=== PATIENT | male | born 1995 | race Caucasian/White ===

== ENCOUNTER 2023-03-17 21:25 | Emergency (ER) | payer OTHER, SELFPAY ==
[2023-03-17 21:32] VITALS: BP 141/95; PULSE 124; RESP 18; TEMP 37.1; O2SAT 98; BMI 35.3
[2023-03-17] MEDS: LORazepam 1 MG TABLET 2 MG PO (22:50)
[2023-03-17] MEDS: Lidocaine HCl 1 % MPF 5 ML VIAL SUBCUT (22:52)
--- NOTE | 2023-03-17 23:11 | ED_ITS ---
HPI - General Adult General Chief complaint: Wound/Laceration Stated complaint: lac left palm Time Seen by Provider: 03/17/23 22:41 Source: patient Mode of arrival: ambulatory Limitations: no limitations History of Present Illness HPI narrative: 27 yold male presents to the ED for left palm laceration near thumb cause by knife while he was cutting fishing line. Patient states she has complete range of motion of thumb and rest of fingers and has sensation. patient not uptodate with tetanus. patient denies any other trauma Related Data Previous Rx's Medication Instructions Recorded cephalexin 500 mg capsule 500 mg PO QID 7 days #28 caps 03/17/23 Allergies Allergy/AdvReac Type Severity Reaction Status Date / Time No Known Allergies Allergy Verified 03/17/23 21:41 Review of Systems Review of Systems: left palm laceration Yes all other systems are reviewed and are negative [facility] Social History Social History Advance Directives: No Advance Directives Information Provided: No Physical Exam ED Vital Signs: Vital Signs - 24 hr 03/17/23 21:32 Temperature 98.7 F Pulse Rate 124 H Respiratory Rate 18 Blood Pressure 141/95 H Pulse Oximetry 98 Oxygen Delivery Method Room Air BMI result Body Mass Index 35.3 Const General: cooperative, healthy appearing, comfortable, no acute distress, well developed, alert, awake and Physically active Orientation/consciousness: oriented to person, oriented to place, oriented to time and patient oriented x3 HENMT Head: Yes normal to inspection, Yes No palpable skull fracture present, Yes normocephalic, Yes atraumatic and No abrasion Eyes General: appearance normal, both eyes and all related structures Neck Neck: Yes normal visual inspection, Yes full ROM, Yes no lymphadenopathy, Yes no meningeal signs, Yes trachea midline, Yes supple, No anterior neck swelling and No tender Chest Chest palpation & inspection: normal inspection of the chest and normal palpation of entire chest wall Resp Effort & Inspection: normal respiratory effort and able to speak in complete sentences Auscultation: clear to auscultation bilaterally Cardio Jugular venous distension: no JVD Heart sounds: S1 normal heart sound present and S2 normal heart sound present GI Inspection: Yes normal to inspection and No abdominal wall ecchymosis Palpation (GI): Soft to palpation, not firm, nontender, no guarding and not rigid General: No CVA tenderness and Yes no CVA tenderness Back/Spine/Pelvis Back: no CVA tenderness, No CVA tenderness and No back tenderness Skin General skin exam: no rashes or lesions noted and elasticity normal Neuro General: oriented to person, oriented to place, oriented to time, patient oriented x3, gait normal, tone normal, moves all extremities, Normal light touch and pain sensation, no meningeal signs, no focal motor deficits, CN's II-XI intact bilaterally and normal sensation to monofilament Extrem General: Yes normal to inspection and Yes full ROM Hand/finger images: 1. positive for laceration. Bleeding controlled. Patient has complete range of motion of thumb and all other fingers. negative for signs of nerve or tendon injury. Capillary refils intact. motor, neuro, and vascular exam is intact. Psych Appearance: grossly normal, well kempt and not disheveled Medications Administered Discontinued Medications Generic Name Dose Route Start Last Admin Trade Name Freq PRN Reason Stop Dose Admin Diphtheria/Tetanus/Acell Pertussis 0.5 ml 03/17/23 22:48 03/17/23 23:12 Diphth,Pertus(Acell),Tet Adult 0.5 Ml Syringe IM 03/17/23 22:49 0.5 ml .ONCE ONE Administration Lidocaine HCl 5 ml 03/17/23 22:46 03/17/23 22:52 Lidocaine Hcl 1 % Mpf 5 Ml Vial SUBCUT 03/17/23 22:47 5 ml ONCE ONE Administration Lidocaine HCl 2 ml 03/17/23 22:46 03/17/23 22:52 Lidocaine Hcl 2% 2 Ml Vial INFILTRATI 03/17/23 22:47 Not Given ONCE ONE Lidocaine HCl 2 ml 03/17/23 22:46 03/17/23 22:52 Lidocaine Hcl 2% 2 Ml Vial INFILTRATI 03/17/23 22:47 Not Given ONCE ONE Lidocaine HCl 2 ml 03/17/23 22:46 03/17/23 22:53 Lidocaine Hcl 2% 2 Ml Vial INFILTRATI 03/17/23 22:47 Not Given ONCE ONE Lidocaine HCl 2 ml 03/17/23 22:46 03/17/23 22:53 Lidocaine Hcl 2% 2 Ml Vial INFILTRATI 03/17/23 22:47 Not Given ONCE ONE Lorazepam 2 mg 03/17/23 22:46 03/17/23 22:50 Lorazepam 1 Mg Tablet PO 03/17/23 22:47 2 mg ONCE ONE Administration Medical Decision Making Medical Decision Making MDM Narrative: 27-year-old presents to the ED for left palm laceration caused by a knife while cut in fishing line. Patient has complete range of motion of all fingers and bleeding controlled. Negative for signs of tendon or nerve injury. Patient given tetanus. Wound cleaned with sterile saline and beta iodine. Lidocaine 1% 4 mL based anesthesia. Size 3 nylon sutures used. Three sutures placed. Differential Diagnosis Differential Diagnoses: The differential diagnosis associated with the presentation includes (Laceration, nerve tendon injury, arterial bleed, partial amputation, avulsion fracture) Independent Historian Clinical information obtained from an independent historian. History obtained from or confirmed by: Parent and Other External Record Review External record reviewed: Other (prior ED visit) Prescription Management I considered prescription management with: Antibiotic Discharge Plan Discharge Clinical Impression: Laceration Patient Disposition: Home, Self-Care Instructions: Laceration (ED) Additional Instructions: Return to the ED in 10 days for suture removal. Return to the ED immediately for any swelling, redness, pus discharge, foul odor, inability to open and close Alessandro, inability to move fingers, fever, chills, bluish discoloration, hotness, coldness, or any other concerning symptoms. Please follow-up primary care provide Prescriptions: New cephalexin 500 mg capsule 500 mg PO QID 7 Days Qty: 28 0RF Stand Alone Forms: Work/School Release Interventions: ED Discharge Assessment Last Done: 03/17/23 23:31 Discharge Date/Time: 03/17/23 23:31 Print Language: Slovak
[2023-03-17] MEDS: Diphth,Pertus(ACell),Tet Adult 0.5 ML SYRINGE IM (23:12)
--- NOTE | 2023-03-17 23:19 | PC.NURSE ---
this rn oversaw procedure, pt tolerated well.
== END 2023-03-17 23:31 | disposition home or self-care (01) ==
PROVIDERS: Emergency Provider Internal Medicine
DX: S61.412A Laceration without foreign body of left hand, initial encounter (principal); S60.512A Abrasion of left hand, initial encounter; W26.9XXA Contact with unspecified sharp object(s), initial encounter; Y93.9 Activity, unspecified; Y92.9 Unspecified place or not applicable; Y99.9 Unspecified external cause status; Z23 Encounter for immunization
CPT/HCPCS: 12001; 90471; 90715; 99284